=== PATIENT | female | born 2000 | race African-American/Black ===

== ENCOUNTER 2019-01-29 09:23 | Emergency (ER) | payer OTHER ==
[~2019-01-29] VITALS: Ht 157.5 cm; Wt 77.1 kg
[2019-01-29] MEDS ORDERED: PREDNISONE 20 M20 MG PO (11:06)
[2019-01-29] MEDS ORDERED: KEFLEX500 M1 PO (11:06)
[2019-01-29] MEDS ORDERED: PEPCID20 MG PO (11:06)
[2019-01-29 11:45] VITALS: BP 114/76
== END 2019-01-29 11:44 | disposition home or self-care (01) ==
LOC: ER 09:23
DX: T63.481A Toxic effect of venom of other arthropod, accidental (unintentional), initial encounter (principal); Y92.89 Other specified places as the place of occurrence of the external cause